=== PATIENT | female | born 1980 | race Two or more races ===

== ENCOUNTER 2024-02-13 10:19 | Emergency (ER) | payer MEDICAID ==
[~2024-02-13] VITALS: Ht 162.6 cm; Wt 96.0 kg
[2024-02-13 10:23] VITALS: O2SAT 97
[2024-02-13] MEDS: KETOROLAC 30MG/ML VIAL IM ONE (11:16)
[2024-02-13] MEDS ORDERED: NAPR-677 MT (11:30)
[2024-02-13 11:39] VITALS: BP 144/90; PULSE 82; RESP 16; TEMP 37.00296; O2SAT 97
== END 2024-02-13 11:41 | disposition home or self-care (01) ==
LOC: ER 10:19
DX: M54.2 Cervicalgia (principal); R00.2 Palpitations; E11.9 Type 2 diabetes mellitus without complications
CPT/HCPCS: 71045; 93005; 96372; 99283; J1885; Z7610